=== PATIENT | male | born 1980 ===

== ENCOUNTER 2024-12-07 15:52 | Inpatient (IN) | payer OTHER ==
[~2024-12-07] VITALS: Ht 182.9 cm; Wt 85.6 kg
[2024-12-07 19:34] VITALS: BP 142/82
[2024-12-07] MEDS ORDERED: Ondansetron 4 MG SoluTab MM PRN (19:40)
[2024-12-07] MEDS ORDERED: Polyethylene Glycol 3350 17 gm PO PRN (19:40)
[2024-12-07] MEDS ORDERED: Aluminum Hydroxide 320MG/5ML 473 ML PO PRN (19:45)
[2024-12-07] MEDS ORDERED: Haloperidol Lactate Inj. 5 MG/ML Injection IM PRN (19:45)
[2024-12-07] MEDS ORDERED: DiphenhydrAMINE HCl 50 MG/ML 1ML Vial IM PRN (19:45)
[2024-12-07 19:58] VITALS: BP 142/82
--- NOTE | 2024-12-08 05:58 | NUR ---
ADMIT SUMMARY Pt admitted to [facility] from [facility] for SI. Pt arrived on unit at 191. Pt was changed into unit scrubs, skin checked, VS taken, belongings processed. Pt is A&O, depressed, sad affect, eye contact is avoidant. Pt endorses SI, but is safe here. Pt denies hallucinations and HI. Pt is recently and stated that he has "issues with abandonment" and has become very depressed. He attempted to overdose on Wellbutron and Chantrix, but appears to have vomited up the majority of the tablets per packet from [facility]. Pt answered all questions with short answers and reiterated that he just wanted to sleep. After interview and assessment, pt was oriented to the unit and shown to his room. Pt placed on q15m monitoring for safety and wellness.
--- NOTE | 2024-12-08 05:59 | NUR ---
SHIFT SUMMARY Pt is A&O, calm, cooperative, eye contact is appropriate. Pt endorses SI without plan and is safe on the unit. Pt denies HI and hallucinations. Pt denies pain and other medical issues. After admission pt retired to his room and slept. At approximately 2115 pt awoke. He was given a snack and then he took a shower before returning to bed. Staff continues to monitor q15m for safety and wellness.
[2024-12-08 07:45] LABS: CHOL/HDL RATIO 2.4; Cholesterol 180 mg/dL (50-200); HDL Cholesterol 74 mg/dL (>39); LDL/HDL RATIO 1.2; Low Density Lipoprotein Chol 91 mg/dL (0-110); Triglycerides 77 mg/dL (30-160); Very Low Density Lipoprot Chol 15 mg/dL (6-32)
[2024-12-08] MEDS ORDERED: Multivitamins 1 Tab PO SCH (09:00)
[2024-12-08 09:21] VITALS: BP 140/89
--- NOTE | 2024-12-08 17:51 | NUR ---
SHIFT SUMMARY PT DENIES SI/HI AND ALL HAULLUCINATIONS. IN THE AM HE STATES HE IS "GRUMPY." HE HAD A DISGRUNTLED ATTITUDE BUT WAS COOPERATIVE WITH STAFF AND INTERACTED WITH OTHER PATIENTS. PT WAS COMPLIANT WITH ALL MEDCATIONS AND ATTENDED GROUPS. THERE HAVE BEEN NO ADDED OR CHANGES IN MEDS OF THIS TIME. MESSAGE SENT TO REGARDING THIS. THERE WERE NO ACUTE EVENTS THIS SHIFT TO REPORT.
[2024-12-08 20:50] VITALS: BP 146/91
--- NOTE | 2024-12-09 06:10 | NUR ---
SHIFT SUMMARY Pt is A&O, calm, cooperative, eye contact is avoidant. Pt stated that his mood was I feel like shit, affect is sad. Pt denies SI, HI, and hallucinations. Pt also denies current pain or other medical issues. Pt spent much of the evening in the TV room, but sat off to himself near the door. Answers during assessment were short, typically one-word. Pt stated that he is feeling depressed because he hasn t spoken to his children since last December. Engineer Process educated pt regarding a new order of mirtazapine, which will start tonight. Pt requested PRN trazodone with his HS medications. After pt retired to his room, a staff member found pt s mindfulness handout in the Group Room. The back of the handout listed numerous statements expressing situations and events that have made him feel hopeless and worthless. Engineer Process placed this paper in pt s hard chart. Staff continues to monitor q15m for safety and wellness.
[2024-12-09 07:11] VITALS: BP 125/49
--- NOTE | 2024-12-09 07:25 | NUR ---
PT SITTING IN HALLWAY. HE BEGAN HITTING HIS HEAD AGAINST THE WLL THEN YELLED AT [employer]S "CANT ANYONE GET ME SOMETHING TO DRINK!" HE THEN PROCEEDED TO GET UP ND STOMP DOWN THE CONTRERAS AND SLAMMING HIS DOOR. SPOKE WITH PATIENT. HE REPORTS THAT HE DID NOT HAVE A WATER CUP HE THREW IT AWAY. WATER REPLACED. AND UNIT EXPECTATIONS GENTLY REVIEWED. PT MEDICATED WITH VISTRIL FOR MASS SCORE OF 10. HE WAS ABLE TO CALM DOWN AND THANKED THIS RN FOR WATER
--- NOTE | 2024-12-09 16:32 | NUR ---
SHIFT SUMMARY PT A/O X4; DENIES SI, HI, AVTH. HE HAD AN OUTBURST AT THE BEGINNING OF THIS SHIFT WHERE HE HIT HIS HEAD ON THE WALL AND ATTEMPTED TO SLAM THE DOOR TO HIS ROOM. PT UPSET ABOUT NOT HAVING WATER AND WAS SPOKEN TO BY THE CHARGE NURSE. PT WAS REDIRECTED AND TREATED PER EMR FOR AGITATION. PT ATTENDED ALL GROUPS AND MEALS THIS SHIFT. A NOTE WAS BROUGHT FORTH BY A FEMALE PATIENT THAT THE PATIENT HAD WRITTEN HER. THE NOTE WAS INAPPROPRIATE IN NATURE. PT WAS SPOKEN TO BY [facility] DIRECTOR AND BY [employer]PAR[employer] REPAIR MECHANIC. HE CONTINUES TO BE MONITORED Q15 FOR SAFETY AND WELLNESS.
[2024-12-09 20:49] VITALS: BP 129/94
--- NOTE | 2024-12-10 04:03 | NUR ---
Patient is alert and oriented times four. He was out in the day room for most of the evening, participated in snacks then after a brief assessment went to bed around 2130. He denied SI,HI and AVTH at that time. Patient was quiet, but pleasant with staff, and although in the same area, he was somewhat subdued around his peers. He got to show this nurse and the [facility] a video of his daughter on you tube which made him obviously happy and proud. He expressed some sadness over not being able to have seen his kids for so long. Slept all night from about 2200 on. Will continue close monitoring every 15 minutes for safety and comfort.
[2024-12-10 07:32] VITALS: BP 134/84
--- NOTE | 2024-12-10 17:18 | NUR ---
SHIFT SUMMARY PT IS AA&O TO PERSON, PLACE, TIME, AND SITUATION. HE IS COMPLIANT WITH MEDICATIONS. HE REPORTS THAT HE FEELS LIKE HE IS IMPROVING AND DENIES ANY ADVERSE SIDE EFFECTS. SPEECH IS LINEAR AND ORGANIZED. MOOD IS GOOD AND AFFECT IS CONGRUENT. DENIES SI, AVH. HE HAS BEEN UP FOR GROUPS AND MEALS. HE IS INTERACTING WELL WITH STAFF AND PEERS. MEDICATION AND DX REVIEWED. HE DENIES ANY QUESTIONS OR CONCERNS. WILL CONTINUE PLAN OF CARE
[2024-12-10 19:40] VITALS: BP 123/95
--- NOTE | 2024-12-11 04:40 | NUR ---
Patient is alert and oriented times four. Denies SI,HI and AVTH during evening assessment. Active in the milieu until 2129 when he went to bed. He appears to have slept very peacefully throughout the night. He is hoping for Discharge today () so that he may attend family function on Sunday with his sister. Will continue close monitoring every 15 minutes for safety and comfort.
[2024-12-11 08:41] VITALS: BP 140/92
--- NOTE | 2024-12-11 11:40 | NUR ---
IMPORTANT DISCHARGE INFORMATION PATIENT TO BE DISCHARGED TODAY. HIS SISTER IS COMING TO PICK HIM UP LATER TODAY, SOMETIME AFTER 1PM. ALL PARTIES VERBALIZE AN UNDERSTANDING. CLOTHES FROM OUR [employer]ING [employer] DONATED. PATIENT HAS MOVED TO [place] OUTSIDE HIS READING COACH. SN GAVE [facility] READING COACH/INSURANCE INFORMATION. PATIENT CAN CALL OR VISIT THE OFFICE AND HE CAN ROLL INTO NEW READING COACH. PATIENT DOSEN'T HAVE A PCP IN THIS AREA OF YET. HE MAY GO TO [facility] FOR MENTAL HEALTH OR PRIMARY CARE UNTILL HE GETS A NEW READING COACH/PROVIDER.RESOURCES PROVIDED. RESOURCES FOR: FOOD PANTRY, CLOTHING CLOSET AND [facility] PROVIDED.
[2024-12-11] MEDS ORDERED: MIRT15 PO (12:45)
--- NOTE | 2024-12-11 16:20 | NUR ---
DISCHARGE PT AOX4 AND HAS BEEN CALM AND COOPERATIVE WITH TREATMENT. PT ATTENDED ALL MEALS AND GROUPS THIS SHIFT. PT INTERATED WELL WITH PEERS AND STAFF. DISCHARGE ORDERS RECEIVED. NEW MEDICAION FAXED INTO [facility] IN [place]. DISCHARGE PACKET, INCLUDING [facility] INFORMATION AND [facility] [place]. GENI'S FOR SISTER AND BROTHER-[id number] SIGNED. PT GIVEN THE OPPERTUNITY TO ASK QUESTIONS ABOUT DISCHARGE PROCESS, BUT VOICED NO QUESTIONS CONCERNING DISCHARGE OR AFTERCARE. PT'S PROPERTY RETURNED TO HIM AND HE LEFT THE UNIT AT 1602 WITH HIS SISTER.
== END 2024-12-11 16:02 | disposition home or self-care (01) | DRG 881 ==
LOC: BHU 15:52
PROVIDERS: ADMIT Psychiatry & Neurology Psychiatry
DX: F32.A Depression, unspecified (principal); F15.20 Other stimulant dependence, uncomplicated; R45.851 Suicidal ideations; Z91.013 Allergy to seafood; Z91.51 Personal history of suicidal behavior
CPT/HCPCS: 36415; 80061; 83036; A9270